=== PATIENT | female | born 1965 | race Two or more races ===

== ENCOUNTER → 2018-12-09 | Day surgery (SDC) | payer OTHER ==
[~2018-12-09] MED LIST: ATENOLOL-CHLORT1 TAB PO; EXFORGE HCT 5-1 EACH PO; SYNTHROID75 MCG PO; TYLENOL EXTRA500 MG PO
== END | disposition home or self-care (01) ==
LOC: ADM 12-04 13:15 → CIR.AMB 08:56
DX: N84.0 Polyp of corpus uteri (principal); N72 Inflammatory disease of cervix uteri

== ENCOUNTER 2023-07-30 06:00 | Day surgery (SDC) | payer OTHER ==
[2023-07-30] MEDS ORDERED: TRAM1TAB98 PO (10:04)
== END 2023-07-30 13:30 | disposition home or self-care (01) ==
LOC: CIR.AMB 06:00
PROVIDERS: ATTEND Obstetrics & Gynecology Gynecology
DX: R87.613 High grade squamous intraepithelial lesion on cytologic smear of cervix (HGSIL) (principal); N72 Inflammatory disease of cervix uteri; Z88.6 Allergy status to analgesic agent; Z20.822 Contact with and (suspected) exposure to COVID-19

== ENCOUNTER 2024-10-28 10:30 | Inpatient (IN) | payer OTHER ==
[~2024-10-28] VITALS: Ht 152.4 cm; Wt 68.0 kg
[~2024-10-28 10:30] MED LIST changes: +TRAM1TAB98 PO
[2024-10-28 12:29] VITALS: BP 113/65
[2024-10-28 12:35] VITALS: BP 117/73
[2024-10-28 14:04] LABS: RH POSITIVE
[2024-11-03] MEDS ORDERED: CEFAZOLIN SODIUM 1,000 MG VIAL ONE (15:36)
[2024-11-03] MEDS ORDERED: POVIDONE-IODINE 118 ML BOTT TOP ONE (16:26)
[2024-11-03] MEDS ORDERED: HEMOSTATIC MATRIX 1 KIT KIT TOP ONE (18:28)
[2024-11-03] MEDS ORDERED: SURGIFLO APPLICATOR 1 EACH APPL TOP ONE (18:28)
[2024-11-03] MEDS ORDERED: SUGAMMADEX SODIUM 200 MG/2 ML VIAL IV ONE (18:31)
[2024-11-03] MEDS ORDERED: MORPHINE SULFATE 4 MG/ML VIAL IV PRN (19:00)
[2024-11-03] MEDS ORDERED: ONDANSETRON HCL 2 MG/ML VIAL IV PRN (19:00)
[2024-11-03] MEDS ORDERED: CEFAZOLIN SODIUM 1,000 MG VIAL IV SCH (19:00)
[2024-11-03] MEDS ORDERED: RINGERS SOLUTION,LACTATED 1,000 ML IV SCH (19:00)
[2024-11-03] MEDS ORDERED: MORPHINE SULFATE 4 MG,MORPHINE SULFATE 2 MG IV PRN (19:30)
[2024-11-03] MEDS ORDERED: MORPHINE SULFATE 4 MG/ML VIAL IV ONE (19:40)
[2024-11-03] MEDS ORDERED: FAMOtidine 20 MG TABLET PO SCH (21:00)
[2024-11-03] MEDS ORDERED: ENALAPRILAT DIHYDRATE 1.25 MG/ML VIAL IV PRN (21:00)
[2024-11-04] MEDS ORDERED: CEFAZOLIN SODIUM 1,000 MG VIAL ONE (00:10)
[2024-11-04 00:48] LABS: HEMATOCRIT 42.7 % (36.0-45.00); HEMOGLOBIN 14.3 g/dL (12.0-15.00); MEAN CELL VOLUME 86.6 fL (80.00-100.00); MEAN CORPUSCULAR HGB CONC 33.4 g/dl (32.0-36.0); PLATELET COUNT 266 K/uL (150-450); RED BLOOD COUNT 4.93 M/uL (4.00-6.00); RED CELL DISTRIBUTION WIDTH 13.7 % (11.5-14.5)
[2024-11-04] MEDS ORDERED: LEVOTHYROXINE SODIUM 75 MCG TABLET PO SCH (06:00)
[2024-11-04] MEDS ORDERED: ENOXAPARIN SODIUM 40 MG/0.4 ML SYRINGE SUBCUTANEO SCH (06:35)
[2024-11-04] MEDS ORDERED: TYLENOL ARTHRI650 MG PO (06:45)
[2024-11-04] MEDS ORDERED: NEURONTIN300 MG PO (06:46)
[2024-11-04 08:00] VITALS: BP 120/77
== END 2024-11-04 13:04 | disposition home or self-care (01) | DRG 743 ==
LOC: O/R 11-03 07:39 → OB/GYN 11-03 10:30
PROVIDERS: ADMIT Obstetrics & Gynecology Gynecology; ATTEND Obstetrics & Gynecology Gynecology
PROC: 0UT74ZZ Resection of Bilateral Fallopian Tubes, Percutaneous Endoscopic Approach (ICD-10-PCS; 2024-11-03)
PROC: 0UT24ZZ Resection of Bilateral Ovaries, Percutaneous Endoscopic Approach (ICD-10-PCS; 2024-11-03)
PROC: 0UT94ZZ Resection of Uterus, Percutaneous Endoscopic Approach (ICD-10-PCS; principal; 2024-11-03 10:30)
DX: D25.0 Submucous leiomyoma of uterus (principal); D25.2 Subserosal leiomyoma of uterus; N87.1 Moderate cervical dysplasia; N84.0 Polyp of corpus uteri; D27.1 Benign neoplasm of left ovary